=== PATIENT | female | born 1990 | race Caucasian/White ===

== ENCOUNTER 2023-05-28 14:40 | Inpatient (IN) | payer OTHER ==
[~2023-05-28 14:40] MED LIST: Lidocaine 1% 10 ML MDV ONE
[2023-05-28] MEDS ORDERED: Lidocaine 1% 50 ML MDV INJECT PRN (14:49)
[2023-05-28] MEDS ORDERED: Calcium Carbonate 500 MG Tab.Chew PO PRN (14:49)
[2023-05-28] MEDS ORDERED: Nalbuphine HCl 10 MG/ 1ML Amp IVPUSH PRN (14:49)
[2023-05-28] MEDS ORDERED: Sodium Chloride 0.9% 10 ML Syringe FLUSH PRN (14:49)
[2023-05-28 15:41] LABS: BASOPHILS PERCENT AUTO 0.2 % (0.0-1.0); EOSINOPHILS ABSOLUTE AUTO 0.1 K/mm3 (0.0-0.4); EOSINOPHILS PERCENT AUTO 0.5 % (0.0-6.0); HEMATOCRIT 37.4 % (37.0-47.0); HEMOGLOBIN 12.9 gm/dl (12.0-16.0); IMMATURE GRAN ABSOLUTE AUTO 0.06 K/mm3 (0.00-0.05); IMMATURE GRAN PERCENT AUTO 0.5 % (0.0-0.4); LYMPHOCYTES ABSOLUTE AUTO 2.2 K/mm3 (1.0-4.8); LYMPHOCYTES PERCENT AUTO 16.3 % (24.0-44.0); MEAN CORPUSCULAR HEMOGLOBIN 32.8 pg (28.0-32.0); MEAN CORPUSCULAR HGB CONC 34.5 g/dl (32.0-36.0); MEAN CORPUSCULAR VOLUME 95.2 fl (83.0-99.0); MEAN PLATELET VOLUME 11.3 fl (9.4-12.3); MONOCYTES ABSOLUTE AUTO 0.8 K/mm3 (0.0-0.8); MONOCYTES PERCENT AUTO 6.1 % (0.0-8.0); NEUTROPHILS ABSOLUTE AUTO 10.1 K/mm3 (1.8-7.7); NEUTROPHILS PERCENT AUTO 76.4 % (41.0-71.0); PLATELET COUNT,PLT 154 K/mm3 (150-400); RED BLOOD CELL COUNT 3.93 M/mm3 (4.10-5.30); WHITE BLOOD CELL COUNT,WBC 13.22 K/mm3 (3.9-11.3)
[2023-05-28] MEDS: Lactated Ringers 1,000 ML IV SCH (15:57)
[2023-05-28] MEDS: Oxytocin/Lactated Ringers 30 UNIT/500 ML BAG IV SCH (16:01)
[2023-05-28] MEDS: Sodium Chloride 0.9% 10 ML Syringe FLUSH SCH (20:44)
[2023-05-28] MEDS ORDERED: ePHEDrine 50 MG/ML SDV IVPUSH PRN (20:49)
[2023-05-28] MEDS ORDERED: diphenhydrAMINE 50 MG/ML SDV IVPUSH PRN (20:49)
[2023-05-28] MEDS ORDERED: Phenylephrine 1% 10 MG/ML SDV IVPUSH PRN (20:49)
[2023-05-28] MEDS: fentaNYL 100 MCG/2 ML SDV EPIDUR PRN (22:49)
[2023-05-28] MEDS: Bupivacaine/fentaNYL/NS 100 ML Bag EPIDUR PRN (22:49)
[2023-05-29] MEDS: Ondansetron 4 MG/2 ML SDV IVPUSH PRN (02:48)
[2023-05-29] MEDS: Clindamycin Phosphate in D5W 900 MG in Premix Bag 1 BAG IV SCH (16:17)
[2023-05-29] MEDS: GENTAMICIN IV ONE (16:29)
[2023-05-29] MEDS: DEXTROSE 5% IV ONE (16:29)
[2023-05-29] MEDS: WATER IV ONE (16:29)
[2023-05-29] MEDS: Misoprostol 200 MCG Tab PO STA (17:31)
[2023-05-29] MEDS: Oxytocin/Lactated Ringers 30 UNIT/500 ML BAG IV SCH (17:50)
[2023-05-29] MEDS ORDERED: Acetaminophen 325 MG Tab PO PRN (20:54)
[2023-05-30] MEDS: Ibuprofen 600 MG Tab PO PRN (00:19)
[2023-05-30] MEDS: Witch Hazel Medicated Pads 40/Jar TOP PRN (00:20)
[2023-05-30] MEDS: Benzocaine/Menthol 20%-0.5% Spray 78 GM Cannister TOP PRN (00:20)
[2023-05-30] MEDS ORDERED: Acetaminophen 325 MG Tab PO SCH (09:00)
[2023-05-30] MEDS: Acetaminophen 325 MG Tab PO STA (09:03)
[2023-05-30] MEDS: Tranexamic Acid 1,000 MG/10 ML Vial ONE (09:03)
[2023-05-30] MEDS ORDERED: Docusate Sodium 100 MG Cap PO PRN (18:42)
== END 2023-05-31 14:51 | disposition home or self-care (01) | DRG 805 ==
LOC: JD.OBCHECK 14:40 → JD.OB 14:45 → JD.OBCHECK 14:48 → JD.OB 14:49 → OBSVTOIN 05-29 17:47 → JD.OB 05-29 18:00
PROVIDERS: ADMIT Obstetrics & Gynecology; ATTEND Obstetrics & Gynecology
PROC: 10E0XZZ Delivery of Products of Conception, External Approach (ICD-10-PCS; principal; 2023-05-29)
PROC: 0KQM0ZZ Repair Perineum Muscle, Open Approach (ICD-10-PCS; 2023-05-29)
PROC: 3E0R3BZ Introduction of Anesthetic Agent into Spinal Canal, Percutaneous Approach (ICD-10-PCS; 2023-05-29)
PROC: 00HU33Z Insertion of Infusion Device into Spinal Canal, Percutaneous Approach (ICD-10-PCS; 2023-05-29)
DX: O42.02 Full-term premature rupture of membranes, onset of labor within 24 hours of rupture (principal); O41.1230 Chorioamnionitis, third trimester, not applicable or unspecified; Z37.0 Single live birth; O48.0 Post-term pregnancy; Z3A.40 40 weeks gestation of pregnancy; Z88.0 Allergy status to penicillin; O70.1 Second degree perineal laceration during delivery; O77.0 Labor and delivery complicated by meconium in amniotic fluid
CPT/HCPCS: 36415; 51701; 51702; 59025; 59409; 85025; 86592; A9270-GY; J0736; J1580; J2405; J3010; J3490; J7060; J7120; J7999